=== PATIENT | male | born 1940 | race Caucasian/White ===

== ENCOUNTER 2018-10-17 06:55 | Day surgery (SDC) | payer MEDICARE ==
[~2018-10-17] VITALS: Ht 166.4 cm; Wt 62.7 kg
[2018-10-17 08:12] VITALS: BP 138/77
== END 2018-10-17 12:25 | disposition home or self-care (01) ==
LOC: OUT 06:55
PROVIDERS: ATTEND Urology
DX: C67.4 Malignant neoplasm of posterior wall of bladder (principal); N30.20 Other chronic cystitis without hematuria; N40.0 Benign prostatic hyperplasia without lower urinary tract symptoms; I10 Essential (primary) hypertension; Z72.89 Other problems related to lifestyle; Z79.899 Other long term (current) drug therapy
CPT/HCPCS: 52204; 81001; 87086; 88307; 93005; J0690; J1100; J2405; J2704; J3010; J7120; J9201; 88342

== ENCOUNTER 2019-08-04 07:46 | Outpatient (CLI) | payer MEDICARE ==
[~2019-08-04 07:46] MED LIST: AMLO1CAP42 PO; AMLO1CAP5 PO; BUPR1FIL PO; OMEP10SU2 PO
[2019-08-04 08:54] LABS: BASOPHILS # (AUTO) 0.05 x10^3/uL (0-0.1); BASOPHILS % (AUTO) 1 % (0-1); EOSINOPHILS # (AUTO) 0.16 x10^3/uL (0-0.4); EOSINOPHILS % (AUTO) 2 % (1-7); LYMPHOCYTES # (AUTO) 2.03 x10^3/uL (1-3.4); LYMPHOCYTES % (AUTO) 31 % (22-44); MD NO; MEAN CORPUSCULAR HEMOGLOBIN 26.3 pg (27.5-34.5); MEAN CORPUSCULAR HGB CONC 32.2 g/dL (33.2-36.2); MEAN CORPUSCULAR VOLUME 81.7 fL (81-97); MEAN PLATELET VOLUME 8.4 fL (7.4-10.4); MONOCYTES # (AUTO) 0.82 x10^3/uL (0.2-0.8); MONOCYTES % (AUTO) 13 % (2-9); NEUTROPHILS # (AUTO) 3.43 x10^3/uL (1.8-6.8); NEUTROPHILS % (AUTO) 53 % (42-75); PLATELET COUNT 350 x10^3/uL (130-400); RED BLOOD COUNT 5.94 x10^6/uL (4.38-5.82); RED CELL DISTRIBUTION WIDTH 16.1 % (9.4-14.8)
[2019-08-04 08:59] LABS: ALANINE AMINOTRANSFERASE 21 U/L (12-78); ANION GAP 7 mmol/L (5-15); CALCIUM 9.4 mg/dL (8.5-10.1); CHLORIDE 105 mmol/L (98-107); CREATININE 1.19 mg/dL (0.7-1.3)
[2019-08-04 09:01] LABS: MICROSCOPIC NOT IND
[2019-08-04 09:02] LABS: ALKALINE PHOSPHATASE 84 U/L (45-117); BILIRUBIN,TOTAL 0.4 mg/dL (0.2-1.0); TOTAL PROTEIN 8.3 g/dL (6.4-8.2)
[2019-08-04] MEDS ORDERED: Suboxone PO (10:37)
[2019-08-04] MEDS ORDERED: AMLO1CAP5 PO (10:37)
== END 2019-08-04 23:59 | disposition home or self-care (01) ==
LOC: STAR 07:46
PROVIDERS: ATTEND Urology
DX: Z01.818 Encounter for other preprocedural examination (principal); C67.9 Malignant neoplasm of bladder, unspecified
CPT/HCPCS: 36415; 80053; 81003; 85025; 87086; 93005

== ENCOUNTER 2019-08-08 13:43 | Observation (INO) | payer MEDICARE ==
[~2019-08-08] VITALS: Ht 166.4 cm; Wt 65.5 kg
[~2019-08-08 13:43] MED LIST changes: +Suboxone PO
[2019-08-08] MEDS ORDERED: LACTATED RINGERS 1,000 ML IV SCH ×2 (14:07→19:00)
[2019-08-08 14:09] VITALS: BP 164/100
[2019-08-08] MEDS ORDERED: CHLORHEXIDINE 15 ML UDC ONE (14:16)
[2019-08-08] MEDS ORDERED: CHLORHEXIDINE 15 ML UDC MM ONE (14:30)
[2019-08-08] MEDS ORDERED: ACETAMINOPHEN 500 MG TABLET PO ONE (15:00)
[2019-08-08] MEDS ORDERED: SCOPOLAMINE 1MG PATCH TD SCH (15:00)
[2019-08-08] MEDS ORDERED: FENTANYL PF 100 MCG/2ML ONE ×2 (16:23→17:51)
[2019-08-08] MEDS ORDERED: MIDAZOLAM 1 MG/ML, 2ML ONE (16:23)
[2019-08-08] MEDS ORDERED: ROCURONIUM 10 MG/ML,10ML ONE (16:32)
[2019-08-08] MEDS ORDERED: CEFAZOLIN 1,000 MG ONE (16:32)
[2019-08-08] MEDS ORDERED: PROPOFOL 10 MG/ML, 20ML ONE (16:32)
[2019-08-08] MEDS ORDERED: SUGAMMADEX 200 MG/2 ML IVPush ONE (16:32)
[2019-08-08] MEDS ORDERED: OXYcodone 5 MG/5 ML ORAL.SOL UDC PO PRN (17:30)
[2019-08-08] MEDS ORDERED: LABETALOL 5MG/ML, 20ML IV PRN (17:30)
[2019-08-08] MEDS ORDERED: ACETAMINOPHEN 325 MG TABLET PO PRN (17:30)
[2019-08-08] MEDS ORDERED: hydrALAzine 20 MG/ML, 1ML IV PRN (17:30)
[2019-08-08] MEDS ORDERED: ONDANSETRON 2MG/ML, 2ML IVPush PRN (17:30)
[2019-08-08] MEDS ORDERED: KETOROLAC 30 MG/1 ML IV PRN (17:30)
[2019-08-08] MEDS ORDERED: HYDROmorphone 1 MG/ML, 1ML INJ IVPush PRN (17:30)
[2019-08-08] MEDS ORDERED: OXYcodone 5 MG/5 ML ORAL.SOL UDC ONE (17:52)
[2019-08-08] MEDS: FENTANYL PF 100 MCG/2ML IV PRN ×2 (18:00→18:22)
[2019-08-08] MEDS ORDERED: hydrALAzine 20 MG/ML, 1ML ONE (18:08)
[2019-08-08] MEDS ORDERED: ACETAMINOPHEN 650 MG/20.3 ML UDC ONE (18:19)
[2019-08-08] MEDS ORDERED: ONDANSETRON 2MG/ML, 2ML IV PRN (19:00)
[2019-08-08] MEDS ORDERED: OXYcodone/APAP 5/325MG TABLET PO PRN (19:00)
[2019-08-08] MEDS ORDERED: morphine SULFATE 10 MG/ML, 1ML IV PRN (19:00)
== END 2019-08-08 19:50 | disposition home or self-care (01) ==
LOC: OR 13:43 → 4NE 18:43 → OR 18:47 → 4NE 18:47
PROVIDERS: ADMIT Urology; ATTEND Urology
DX: Z03.818 Encounter for observation for suspected exposure to other biological agents ruled out (principal); C67.9 Malignant neoplasm of bladder, unspecified; E78.5 Hyperlipidemia, unspecified; K21.9 Gastro-esophageal reflux disease without esophagitis; I10 Essential (primary) hypertension; Z79.899 Other long term (current) drug therapy; Z87.891 Personal history of nicotine dependence; Z85.51 Personal history of malignant neoplasm of bladder
CPT/HCPCS: 52234; 88305; G0378; J0360; J0690; J2250; J2704; J3010; J7120; U0001